=== PATIENT | male | born 1940 | race Caucasian/White ===

== ENCOUNTER 2016-05-12 21:34 | Emergency (ER) | payer OTHER, MEDICARE ==
[~2016-05-12] VITALS: Ht 190.5 cm; Wt 81.6 kg
[~2016-05-12 21:34] MED LIST: ASPIRIN CHILDRE81 MG PO; FIBER CHOICE1 CTB PO; FINASTERIDE5 MG PO; LOSARTAN POTAS100 MG PO; MAGNESIUM OXID400 MG PO; MULTIVITAMIN1 TAB PO; TAMSULOSIN HYD0.4 MG PO
--- NOTE | 2016-05-12 22:16 | ED UPPER/LOWER EXTREMITY COMPL ---
History of Present Illness General Chief Complaint: Laceration Procedure Stated Complaint: CUT RIGHT THUMB, WONT STOP BLEEDING PER PT Source: patient Exam Limitations: no limitations Vital Signs & Intake/Output Vital Signs & Intake/Output Vital Signs Date Time Temp Pulse Resp B/P Pulse O2 O2 Flow FiO2 Ox Delivery Rate 05/12 2224 99 Room Air 05/12 2223 98.3 89 16 142/74 100 Room Air ED Intake and Output 05/13 0000 05/12 1200 Intake Total Output Total Balance Patient 180 lb Weight Allergies Coded Allergies: MDX - Bananas (BANANAS) (UNKNOWN 08/20/13) MDX - Ibuprofen (Ibuprofen) (UNKNOWN 08/20/13) Reconcile Medications Aspirin (Children's Aspirin) 81 MG TAB.CHEW 1 TAB PO DAILY HEART HEALTH ( Reported) Reason to Stop at ADM: HOLDING FOR SURGERY Fiber (Fiber Choice) 1 CTB CTB 1 CAP PO DAILY SUPPLEMENT (Reported) Finasteride 5 MG TABLET 1 TAB PO DAILY PROSTATE (Reported) Losartan Potassium 100 MG TABLET 1 TAB PO DAILY BP (Reported) Magnesium Oxide 400 MG TABLET 1 TAB PO DAILY SUPPLEMENT (Reported) Multivitamin (Multiple Vitamins) 1 EACH TABLET 1 TAB PO DAILY SUPPLEMENT ( Reported) TAMSULOSIN HCL (Tamsulosin Hydrochloride) 0.4 MG CAP.ER.24H 1 CAP PO DAILY PROSTATE (Reported) Triage Nurses Notes Reviewed? yes Onset: Abrupt Duration: minute(s): Timing: single episode today Severity: mild Pain/Injury Location: Right: 1st finger. Method of Injury: incised Modifying Factors: Improves With: rest. Associated Symptoms: bleeding HPI: 76 yo gentleman on aspirin, cut his right thumb with a knife this morning. It stopped bleeding. But, then, it started bleeding again this evening "and I couldn't get it to stop." He notes that he is otherwise well. Past History Travel History Traveled to [place] past 21 day No Medical History Any Pertinent Medical History? see below for history Cardiovascular: hypertension, PACEMAKER Cancer(s): leukemia History of MRSA: No History of VRE: No History of CDIFF: No Surgical History Surgical History: none Psychosocial History Who do you live with Spouse Services at Home None What is your primary language Spanish Family History Family History, If Any: FATHER Oral cancer MOTHER Hypertension BROTHER Diabetes mellitus (DM) FH: [place] (myocardial infarction) BROTHER Diabetes mellitus (DM) SISTER FH: tuberculosis Hx Contributory? No Review of Systems Review of Systems Constitutional: Reports: no symptoms. EENTM: Reports: no symptoms. Respiratory: Reports: no symptoms. Cardiovascular: Reports: no symptoms. Gastrointestinal/Abdominal: Reports: no symptoms. Genitourinary: Reports: no symptoms. Musculoskeletal: Reports: no symptoms. Skin: Reports: no symptoms. Neurological/Psychological: Reports: no symptoms. Hematologic/Endocrine: Reports: no symptoms. Immunological: Reports: no symptoms. All Other Systems: Reviewed and Negative Physical Exam Physical Exam General Appearance: well developed/nourished, mild distress Head: atraumatic Ears, Nose, Throat: normal ENT inspection Hand Right: 1st finger, 0.5 cm avulsion of skin... minimal oozing blood. Progress Differential Diagnosis: laceration vs abrasion vs other. Plan of Care: no need for sutures kalstat dressing placed.... excellent result. Departure Departure Disposition: HOME OR SELF CARE Condition: Stable Clinical Impression Primary Impression: Skin avulsion Referrals: MARY GANNON MD (PCP/Family) Departure Forms: Customer Survey General Discharge Information Procedures Laceration/Wound Repair Laceration/Wound Repair: Wound Location: RIGHT THUMB LACERATION 2CM. Progress: no need for sutures... kalstat dressing and gauze wrap placed. EXCELLENT RESULT...
[2016-05-12 22:24] VITALS: BP 142/74
== END 2016-05-12 22:17 ==
LOC: ERH 21:34
DX: S61.001A Unspecified open wound of right thumb without damage to nail, initial encounter (principal); W26.0XXA Contact with knife, initial encounter; Y93.9 Activity, unspecified; Y92.9 Unspecified place or not applicable
CPT/HCPCS: 99282

== ENCOUNTER 2017-10-16 15:49 | Emergency (ER) | payer OTHER, MEDICARE ==
--- NOTE | 2017-10-16 16:36 | ED AMS/SEIZURE/WEAK/DIZZY ---
See Addendum History of Present Illness General Chief Complaint: Syncope and Near-Syncope Stated Complaint: SYNCOPE Source: patient Exam Limitations: no limitations Vital Signs & Intake/Output Vital Signs & Intake/Output Vital Signs Date Time Temp Pulse Resp B/P B/P Pulse O2 O2 Flow FiO2 Mean Ox Delivery Rate 10/16 1701 97.3 60 18 131/69 97 10/16 1555 97.0 82 22 141/74 95 Room Air Allergies Coded Allergies: banana (UNKNOWN 12/20/16) ibuprofen (UNKNOWN 12/20/16) Reconcile Medications Aspirin (Children's Aspirin) 81 MG TAB.CHEW 1 TAB PO DAILY HEART HEALTH ( Reported) Reason to Stop at ADM: HOLDING FOR SURGERY Fiber (Fiber Choice) 1 CTB CTB 1 CAP PO DAILY SUPPLEMENT (Reported) Finasteride 5 MG TABLET 1 TAB PO DAILY PROSTATE (Reported) Losartan Potassium 100 MG TABLET 1 TAB PO DAILY BP (Reported) Magnesium Oxide 400 MG TABLET 1 TAB PO DAILY SUPPLEMENT (Reported) Multivitamin (Multiple Vitamins) 1 EACH TABLET 1 TAB PO DAILY SUPPLEMENT ( Reported) TAMSULOSIN HCL (Tamsulosin Hydrochloride) 0.4 MG CAP.ER.24H 1 CAP PO DAILY PROSTATE (Reported) Triage Note: PER PT WAITING [facility] TO REGISTER FOR XR, SUDDENLY FELT SWEATY, AND WARM +SYNCOPAL EPISODE PT REPORTS STOMACH WAS IN PAIN 1 HR AFTER EATING LUNCH DID NOT HAVE BM TODAY PER NORM PACER TO [facility] Triage Nurses Notes Reviewed? yes HPI: Patient presents for evaluation of a near syncopal episode shortly before arrival. Patient states he was experiencing a stomachache after eating lunch today. While waiting for his to be registered for an x-ray, he suddenly felt hot and sweaty. The episode lasted a few moments. Patient states that suddenly there were lots of people who were attending to him. Upon visitation to the emergency department the patient denies any specific complaint. He denies any associated chest pain, palpitations, fever, cold symptoms. Likewise denies any abdominal pain currently. He states he feels well. He denies prolonged standing prior to the incident. He has a pacemaker. Past History Travel History Traveled to [place] past 21 day No Medical History Any Pertinent Medical History? see below for history Neurological: NONE EENT: NONE Cardiovascular: hypertension, PACEMAKER Respiratory: NONE Gastrointestinal: NONE Hepatic: NONE Renal: NONE Musculoskeletal: NONE Psychiatric: NONE Endocrine: NONE Blood Disorders: NONE Cancer(s): leukemia REPRESENTATIVE PHLEBOTOMY SERVICES/Reproductive: NONE History of MRSA: No History of VRE: No History of CDIFF: No Surgical History Surgical History: none Psychosocial History Who do you live with Spouse Services at Home None What is your primary language Danish Tobacco Use: Never used Family History Family History, If Any: FATHER Oral cancer MOTHER Hypertension BROTHER Diabetes mellitus (DM) FH: [place] (myocardial infarction) BROTHER Diabetes mellitus (DM) SISTER FH: tuberculosis Hx Contributory? No Review of Systems Review of Systems Constitutional: Reports: see HPI. EENTM: Reports: no symptoms. Respiratory: Reports: no symptoms. Cardiovascular: Reports: no symptoms. GI: Reports: no symptoms. Genitourinary: Reports: no symptoms. Musculoskeletal: Reports: no symptoms. Skin: Reports: no symptoms. Neurological/Psychological: Reports: no symptoms. Hematologic/Endocrine: Reports: no symptoms. Immunologic/Allergic: Reports: no symptoms. All Other Systems: Reviewed and Negative Physical Exam Physical Exam General Appearance: see below Comments: Gen.: Well-nourished, well-developed, no acute respiratory distress. Head: Normocephalic, atraumatic. Eyes: Normal inspection bilaterally Ears: Normal inspection bilaterally Nose: Normal inspection Throat/mouth : Moist mucosa Neck: Supple, full range of motion, no goiter Heart: Regular rate and rhythm, no murmurs rubs or gallops Lungs: Clear to auscultation bilaterally with normal air entry Chest: Nontender Back: Normal range of motion Abdomen: Soft, nontender, nondistended, normal bowel sounds Extremities: Normal range of motion grossly, equal radial pulses, no cyanosis clubbing or edema Neurologic: Cranial nerves grossly intact, speech is clear Skin: warm and dry Psychiatric: Calm, cooperative, no apparent delusions or hallucinations Core Measures ACS in differential dx? No CVA/TIA Diagnosis No Sepsis Present: No Sepsis Focused Exam Completed? No Progress Differential Diagnosis: dehydration, redistributive syncope, dysrhythmia, hypoglycemia, CVA Plan of Care: Orders Procedure Date/time Status EKG 10/16 1554 Active Initial ED EKG: AV dual pacer with a ventricular rate of 108 but no acute changes compared with previous. Comments: 10/16/2017 4:40:12 PM patient's case discussed with Valerio Taveras MD who reviewed the patient's EKG. He does not feel that an evaluation in the emergency department, under the circumstances, would be necessary or helpful. He suspects bit of a vasovagal episode and recommends that we watch [place] on the monitor and repeat a set of vital signs. These are stable he feels comfortable with discharge and follow-up in his office. 10/16/2017 5:20:17 PM repeat vitals are stable. There has been no dysrhythmia on monitor. 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 Departure Departure Disposition: HOME OR SELF CARE Condition: Stable Clinical Impression Primary Impression: Near syncope Referrals: Manny DAVIDSON,Gabriel Richardson (PCP/Family) Additional Instructions: Rest, no exertion. Please contact Dr. Taveras tomorrow and arrange for follow- up appointment in his office this week. Notify your primary care doctor of this emergency department visit and treatment plan. Return if any concerns or sudden worsening. Thank you for choosing the [facility] for your care. It was a pleasure to serve you today. John Lopez M.D. [facility] Departure Forms: Customer Survey General Discharge Information
[2017-10-16 18:41] VITALS: BP 132/78
== END 2017-10-16 18:42 ==
LOC: ERH 15:49
DX: R55 Syncope and collapse (principal); R10.9 Unspecified abdominal pain
CPT/HCPCS: 93005; 93010